=== PATIENT | male | born 1965 | race Caucasian/White ===

== ENCOUNTER → 2018-12-23 | Outpatient (CLI) | payer BC, SELFPAY ==
[2018-12-23 12:30] LABS: Color, Urine Yellow (Yellow); Glucose, Dipstick Normal (Normal); Ketone-Dipstick Negative (Negative); Leukocyte Esterase-Dipstick Negative /ul (Negative); Nitrite-Dipstick Negative (Negative); Occult Blood-Urine 250 /ul (Negative); Protein-Dipstick Negative (Negative); Urine Bilirubin Dipstick Negative (Negative); Urine Clarity Clear (Clear); Urine Urobilinogen Normal (Normal)
[2018-12-23 12:40] LABS: Absolute Lymphocyte Count 2.63 X10^3/ul (0.83-4.51); Absolute Neutrophil Count 3.1 X10^3/uL (2.0-7.7); Basophil# 0.07 X10^3/uL; Eosinophil# 0.34 X10^3/uL; Eosinophils% 5.1 % (0-5); Hematocrit 46.2 % (40-54); Hemoglobin 15.8 g/dl (13.0-16.5); Lymphocyte # 2.63 X10^3/ul (4.0); Lymphocyte % 39.4 % (19-41); Mean Corp Hgb Conc 34.2 g/gl (32-36); Mean Corpuscular Hgb 30.5 pg (27.0-32.0); Mean Corpuscular Volume 89.2 fL (80-94); Mean Platelet Vol. 11.5 fl (6.2-12.0); Monocyte# 0.54 X10^3/uL; Monocyte% 8.1 % (0-10); Neutrophil # 3.07 X10^3/uL (2.7-7.7); Neutrophil % 46.1 % (47-70); Platelet Count 232 K/mm3 (150-450); RBC Distribution Width CV 12.1 % (11.6-14.6); RBC Distribution Width SD 39.2 fl (35.1-43.9); Red Blood Count 5.18 M/mm3 (4.6-6.2); White Blood Count 6.7 K/mm3 (4.4-11.0)
[2018-12-23 12:50] LABS: POSITIVE COUNT NO; POSITIVE DIFFERENTIAL NO; POSITIVE MORPHOLOGY NO
[2018-12-23 13:25] LABS: ALB/GLOB Ratio 1.2 RATIO (0.9-2.4); AST(SGOT) 21 U/L (15-37); Alanine Aminotransfer ALT/SGPT 40 U/L (16-61); Albumin, Serum 4.2 g/dL (3.2-5.0); Alkaline Phosphatase 84 U/L (45-117); Anion Gap 9 (5-15); BUN 15 mg/dL (7-18); BUN/Creat Ratio 16.4 RATIO (10-20); Calcium,Total 8.9 mg/dL (8.5-10.1); Chloride 107 mmol/L (98-107); Cholesterol 198 mg/dL (200); Creatinine, Serum 0.92 mg/dL (0.70-1.30); EST Glomerular Filtration Rate 92 mL/min (>60); Est Glom Filt Rate - Afr Amer 111 mL/min (>60); Globulin 3.6 g/dL (2.2-4.2); Glucose 97 mg/dL (74-106); High Density Lipoprotein 47 mg/dL; PSA,Total - Annual Screen 0.56 ng/mL (0.00-4.00); Potassium 4.1 mmol/L (3.5-5.1); Protein, Total 7.8 g/dL (6.4-8.2); Sodium Level 141 mmol/L (136-145); Triglycerides 119 mg/dL; Very Low Density Lipoprotein 24 mg/dL (5-40)
== END | disposition home or self-care (01) ==
LOC: MTLAB 09:57
PROVIDERS: Family Provider Family Medicine; PCP Family Medicine; Referring Provider Family Medicine; Visit Provider Family Medicine
DX: Z00.00 Encounter for general adult medical examination without abnormal findings (principal); Z12.5 Encounter for screening for malignant neoplasm of prostate
CPT/HCPCS: 36415; 80053; 80061; 81002; 84153; 85025; G0103

== ENCOUNTER → 2020-01-11 13:54 | Outpatient (CLI) | payer BC, SELFPAY ==
--- NOTE | 2020-01-11 13:59 | ART_ITS ---
Reason For Study: Post-traumatic osteoarthritis, left ankle and foot Procedure A bilateral lower extremity continuous wave Doppler with analog waveform analysis,segmental pressures,and ankle brachial indexes without exercise. Left Segmental Pressures Left brachial= 133mmHg. Left posterior tibial artery = 177mmHg. Left dorsalis pedis artery = 159mmHg. Left digit = 122 mmHg. The left dorsalis pedis waveforms are triphasic. The left posterior tibial artery waveforms are triphasic. Right Segmental Pressures Right brachial= 139mmHg. Right posterior tibial artery = 163mmHg. Right dorsalis pedis artery = 152mmHg. Right digit = 122 mmHg. The right dorsalis pedis waveforms are triphasic. The right posterior tibial artery waveforms are triphasic. Indices The right ankle brachial index by the dorsalis pedis is 1.09. The right ankle brachial index by the posterior tibial artery is 1.17. The right digital-brachial index is 0.88. The left ankle brachial index by the dorsalis pedis is 1.27. The left ankle brachial index by the posterior tibial artery is 1.14. The left digital-brachial index is 0.88. Interpretation Summary Triphasic Doppler waveforms are noted at ankle level bilaterally. Pulse-volume recordings appear satisfactory at all levels bilaterally, including low-thigh, calf, ankle, and digital levels. Resting ankle-brachial indices are normal bilaterally. Digital-brachial indices are normal bilaterally. There is no evidence of significant arterial occlusive disease in the lower extremities bilaterally. Ordering Physician: Milton Omer Referring Physician: Leonel Martinez Performed By: Lizzy Joseph RVT and Student
== END ==
PROVIDERS: PCP Family Medicine; Referring Provider Podiatrist Foot & Ankle Surgery; Visit Provider Podiatrist Foot & Ankle Surgery
DX: M19.172 Post-traumatic osteoarthritis, left ankle and foot (principal)
CPT/HCPCS: 93923

== ENCOUNTER → 2020-01-17 16:03 | Outpatient (CLI) | payer BC, SELFPAY ==
--- NOTE | 2020-01-17 16:12 | CT_ITS ---
STUDY: CT LOWER EXTREMITY WITHOUT CONTRAST: LEFT REASON FOR EXAM: Male, 54 years old. OSTEOARTHRITIS RADIATION DOSAGE (If Supplied By Facility): CTDIvol = ( 15.35 ) mGy, DLP = ( 399.82 ) mGycm. Individualized dose optimization techniques were used for this CT.? TECHNIQUE: Transaxial imaging with sagittal and coronal reconstruction. COMPARISON: Left foot radiographs of 09/11/2011 FINDINGS: Advanced narrowing, vacuum phenomena and marginal osteophytosis of the tibiotalar articulation. Broadening and flattening of the talar dome. Large degenerative cyst of the distal fibula which is uncovered anteriorly with hypertrophic degenerative changes of the distal tibial fibular synchondrosis. Plantar spur and dorsal enthesophyte of the calcaneus. Mild degenerative narrowing and marginal osteophytosis of the subtalar joint. Mild degenerative narrowing of the talonavicular joint. Normal cuboid and cuneiform tarsals. Normal proximal metatarsals included in the [id number]. General swelling around the tibiotalar joint. There is a 2.2 x 1.0 x 2.8 cm fluid collection invested in the distal flexor hallux longus muscle and tendon. Similar fluid collection in the plantar soft tissues of the foot alongside the flexor hallux longus tendon. There is a strain of well corticated fragments probably associated with the posterior tibialis tendon CT/Extremity Lower without Contra IMPRESSION: Osteoarthritic changes of the tibiotalar joint and related structures as described above. Electronically Signed: Cheyanne Irby MD at 16:48 EDT , Service support ,
== END ==
PROVIDERS: PCP Family Medicine; Referring Provider Podiatrist Foot & Ankle Surgery; Visit Provider Podiatrist Foot & Ankle Surgery
DX: M19.172 Post-traumatic osteoarthritis, left ankle and foot (principal)
CPT/HCPCS: 73700

== ENCOUNTER 2020-03-14 12:41 | Observation (INO) | payer BC, SELFPAY ==
--- NOTE | 2020-02-21 20:25 | PCM.HP.BLA ---
History and Physical History and Physical Patient Name: Paolo Zayas : 1965 From: [facility] NP DATE OF SURGERY: 03/14/2020 SCHEDULED PROCEDURE: Left ankle fusion, left gastrocnemius recession and application of a wound VAC HISTORY OF PRESENT ILLNESS: Preoperative history and physical exam was performed on February 21, 2020. This is a 54-year-old male with left ankle pain. The patient fractured his left ankle when he was in kindergarten. The patient states the fracture was missed at that time. He underwent surgical intervention when he was in fifth grade. The patient does not recall exactly what surgical procedure was performed. He states that he has had continued pain in the left ankle since he was in high school. He describes the pain as constant, dull, aching, sharp and sore. The pain is progressively getting worse with time. The pain is 3 on a scale of 10 at best, 4 on a scale of 10 on average and 8 on a scale of 10 at worst. Associated symptoms include swelling in the left ankle. The pain is increased with stairs and walking. Previous treatments include rest. The patient has a medical history pertinent for depression. Surgical clearance has been obtained from Dr. Martinez. He denies chest pain, fevers, chills, shortness of breath, difficulty breathing or recent infections. After failing conservative measures and discussing treatment options with Dr. Milton Omer the patient does wish to proceed with a left ankle fusion with gastrocnemius recession and application of a wound VAC. REVIEW OF SYSTEMS: ROS: Const: Denies anorexia, anxiety, change in appetite, fever, difficulty sleeping, weight change. CV: Denies chest pain, heart murmur, irregular heartbeat and peripheral vascular disease. Resp: Reports sleep apnea, but denies asthma, cough, pneumonia, shortness of breath, tuberculosis and wheezing. GI: Denies constipation, diarrhea, heartburn, nausea, rectal itching, bloody stools and vomiting. : Denies incontinence. Musculo: Reports leg swelling and trouble walking, but denies pain and weakness. Skin: Reports tattoo, but denies Raynaud's and history of shingles. Neuro: Denies ambulatory dysfunction, dizziness, numbness/tingling and tremor. Psych: Reports depression, but denies anxiety, insomnia, mental illness and stress. Todd/Lymph: Denies anemia, bleeding/bruising tendency and past transfusion. Reviewed, no changes. PAST MEDICAL HISTORY: Advance Care Plan: No Advance Directives Effective Date: 12/11/2019 PMH: Medical Problems: Depression, High Triglycrides Accidents: Fracture - L ANKLE Sports Related Injury - SEPERATED RIBS AND RIGHT ROTATOR CUFF Surgical Hx: Tonsillectomy - 1970[facility]S [facility] Arthroscopy - (05/27/2007) R KNEE Arthroscopy - (10/25/2008) RT KNEE DR PRATT AT [facility] RT Knee Incision & Drainage - (11/15/2008) [facility] @ [facility] Left Ankle, Left Index Finger LT Shoulder Arthroscopy - (07/13/2012) [facility] @ [facility] Anesthesia Complications: None Assistive Devices: Glasses - READING Reviewed and updated. 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 Personal Habits: Cigarette Use: Currently smokes - USES SNUFF.Smokeless Tobacco: Current Smokeless Tobacco User.E-Cigarette Use: Former Smoker.Alcohol: Occasionally.Drug Use: Current Medical Marijuana.Enjoy Exercising: Never Exercises. Reviewed, no changes. VITALS: Ht: 64 Wt: 197lb Wt k.359 BMI: 33.8 BP: 117/69 Pulse: 60 Resp: 16 T: 97.6 T: 36.4C ALLERGIES: Adhesives - Rash MEDICATIONS: Doxycycline Monohydrate 100 mg 1 by mouth twice a day, Percocet 5-325 mg 1-2 by mouth every 4-6 hour as needed pain, Aspirin Ec 325 mg 1 by mouth every day, Citalopram Hydrobromide 40 mg 1po qday, Trazodone HCL 50 mg 1po qday PRE-OP EXAM: General appearance:NORMAL Other: Eyes: Conjunctivae and lids: NORMAL Pupils: ERR Ears, Nose, Mouth, and Throat: NORMAL Other: Inspection of lips, teeth and gums: NORMAL Other: Respiratory: Assessment of respiratory effort: NORMAL Other: Auscultation of lungs: clear to auscultation no wheezes, rhonchi or rales. Cardiovascular: Auscultation of heart: regular rate and rhythm, no murmurs, gallops or rubs. Gastrointestinal: Exam of abdomen: soft, nontender, nondistended bowel sounds present. Neurological: see below Psychiatric: Orientation to time, place and person: NORMAL Other: Mood and affect: NORMAL Other: PHYSICAL EXAMINATION: The patient ambulates with a antalgic gait. Minimal nonpitting edema in the left lower extremity in the area of the medial lateral malleoli of the left ankle. Multiple varicosities noted throughout the left lower extremity. Capillary refill is less than 3 seconds. Pedal pulse palpable. Temperature is warm. No tenderness with compression of the left gastrocnemius muscle. There is tenderness upon palpation and compression of the medial lateral gutters of the left ankle. Tenderness upon palpation of the compression of the tibiotalar articulation. No instability of the left ankle. Dorsiflexion 5/5. Plantar flexion 5/5. Eversion 5/5. Inversion 5/5. Full active plantar flexion. Limited active dorsiflexion. Crepitus noted with range of motion of the left ankle. Decreased range of motion left ankle when compared to the contralateral side. With the knee extended the left dorsiflexion is decreased. No pain with palpation or compression of the left hindfoot. Subtalar joint inversion and eversion is within normal limits and pain-free. Negative lateral squeeze test of the left calcaneus. Left foot is normal to inspection. No pain upon palpation and compression of the tarsometatarsal joint of the left foot. No pain upon palpation or compression of the styloid process of the fifth metatarsal left foot. Metatarsophalangeal joint range of motion is intact and pain free. Skin is intact with no ecchymosis, lesions, rashes or ulcerations. No maceration located on the toes. Skin is intact to light touch. Negative Tinel sign of the left foot. Negative Valleix sign of the left foot. IMAGING STUDIES: 3 views of left ankle including AP, lateral and oblique taken on December 11, 2019 reveal significant degenerative joint disease of the left ankle joint with narrowing of the ankle joint mortise and the medial gutter, lateral gutter and tibiotalar line. There is evidence of valgus tilt noted in the talus when compared to the longitudinal axis of the tibia. No joint space noted of the lateral gutter. Bone cyst formation noted at the lateral malleolus. Osteophyte formation on the anterior and posterior aspects of the tibia. CT scan of the left ankle obtained on January 17, 2020 reveals advanced narrowing, vacuum phenomena and marginal osteophytosis of the tibiotalar articulation of the left ankle. Widening and flattening of the talar dome. Large degenerative cyst of the distal fibula which is uncovered anteriorly and hypertrophic degenerative changes of the distal tibial fibular synchondrosis. IMPRESSION: 1. Posttraumatic osteoarthritis, left ankle and foot 2. Depression 3. Nicotine dependence, smokeless tobacco 4. Cannabis use PLAN: Dr. Milton Omer did discuss and review with the patient all treatment options including surgical versus nonsurgical. The patient does wish to proceed with the above-stated procedure. Potential risk, benefits and complications of the procedure were discussed in detail including but not limited to , infection, nerve and blood vessel damage, persistent pain, numbness, tingling, paresthesia, blood clot, pulmonary embolism and requirement for possible further surgery. The patient expressed full understanding and has no further questions for the doctor. The patient does agree to proceed with the above-stated procedure and has signed the surgery consent form. The patient was given a prescription for Percocet, aspirin and doxycycline at his preoperative visit. Discussed with the patient the risks associated with the COVID-19 virus including the risk of exposure while at the hospital. The patient was reassured local hospitals have low infection rates and taken all necessary precautions to limit patient exposure to COVID-19. Limiting the patient's time in the hospital may decrease their exposure to COVID-19. The patient was notified that we will need to comply with any screening or testing the hospital wishes to perform and that surgery may be delayed for any positive test results. This dictation was created using voice recognition software. Phonetic and/or grammatical errors may exist. ___ I have re-examined the patient. There are no clinical changes since date of exam. ___ See progress notes for changes. ___ Dictated on admission Date: Time: Signature:
--- NOTE | 2020-03-07 14:15 | EKG12_ITS ---
Test Reason : PRE OP Blood Pressure : / mmHG Vent. Rate : 060 BPM Atrial Rate : 060 BPM P-R Int : 156 ms QRS Dur : 096 ms QT Int : 420 ms P-R-T Axes : 022 -06 022 degrees QTc Int : 420 ms Sinus rhythm with marked sinus arrhythmia Otherwise normal ECG Confirmed by ANGELIC PALACIOS, SHEA ([id number]), staff editor NOE CERVANTES ([id number]) on 03/11/2020 1:20:46 PM Referred By: Milton Omer Confirmed By:LEVI ATWOOD MD
--- NOTE | 2020-03-07 14:30 | RAD_ITS ---
STUDY: X-RAY CHEST REASON FOR EXAM: Male, 54 years old. Patient is a smoker, preoperative eval TECHNIQUE: PA and lateral views of the chest. COMPARISON: Comparison is made with prior examination dated 07/13/2012. FINDINGS: The lungs are clear and expanded. There is no demonstrated pleural abnormality. Normal size heart. Normal mediastinum and lola. Normal visualized pulmonary arteries. There is atherosclerotic calcification of the aortic arch with tortuosity. There are diffuse degenerative changes of the visualized thoracic spine. Normal visualized ribs, clavicles, and shoulders. There is no demonstrated abnormality of the visualized soft tissue structures of the upper abdomen. RAD/Chest PA and Lateral IMPRESSION: No acute abnormality is seen. Electronically Signed: Ender Villareal, at 15:35 EDT , Service support ,
[2020-03-07 14:58] LABS: Absolute Lymphocyte Count 2.78 X10^3/uL (0.83-4.51); Absolute Neutrophil Count 4.2 X10^3/uL (2.0-7.7); Basophil# 0.07 X10^3/uL; Basophil% 0.9 % (0-1); Eosinophils% 2.5 % (0-5); Hematocrit 42.9 % (40-54); Hemoglobin 14.4 g/dL (13.0-16.5); Lymphocyte # 2.78 X10^3/ul (4.0); Lymphocyte % 34.5 % (19-41); Mean Corp Hgb Conc 33.6 g/dL (32-36); Mean Corpuscular Hgb 30.5 pg (27.0-32.0); Mean Corpuscular Volume 90.9 fL (80-94); Mean Platelet Vol. 10.3 fl (6.2-12.0); Monocyte# 0.75 X10^3/uL; Monocyte% 9.3 % (0-10); NRBC Flagged by Analyzer 0 % (0-5); Neutrophil # 4.22 X10^3/uL (2.7-7.7); Neutrophil % 52.3 % (47-70); Platelet Count 270 K/mm3 (150-450); RBC Distribution Width CV 12.1 % (11.6-14.6); RBC Distribution Width SD 40.7 fl (35.1-43.9); Red Blood Count 4.72 M/mm3 (4.6-6.2); White Blood Count 8.1 K/mm3 (4.4-11.0)
[2020-03-07 15:10] LABS: Anion Gap 8 (5-15); BUN 15 mg/dL (7-18); BUN/Creat Ratio 16.2 RATIO (10-20); Calcium,Total 9.1 mg/dL (8.5-10.1); Chloride 104 mmol/L (98-107); Creatinine, Serum 0.93 mg/dL (0.70-1.30); EST Glomerular Filtration Rate 90 mL/min (>60); Est Glom Filt Rate - Afr Amer 109 mL/min (>60); Glucose 86 mg/dL (74-106); Potassium 3.6 mmol/L (3.5-5.1); Sodium Level 139 mmol/L (136-145)
[2020-03-07 15:12] LABS: Partial Thromboplast Time 31.6 Seconds (24.1-36.2); Prothrombin Time (Protime)PT. 12.8 SECONDS (11.7-14.9)
[2020-03-07 15:14] LABS: Hemoglobin A1c 5.6 % (3.8-5.6)
[2020-03-14] VITALS (11 sets, daily range): BP systolic 125–143; BP diastolic 65–85; PULSE 58–95; RESP 16–20; TEMP 36.3–37; O2SAT 93–99; BMI 33.9
[2020-03-14] MEDS: Lactated Ringers 1,000 ML 100 ML IV ×3 (06:36→12:00)
[2020-03-14] MEDS: Ipratropium/Albuterol Sulfate 3 ML AMPUL.NEB INHALATION (07:30)
--- NOTE | 2020-03-14 07:30 | RAD_ITS ---
STUDY: X-RAY - LEFT ANKLE REASON FOR EXAM: Male, 54 years old. FUSION -- 20 FLUORO IMAGES, 504.9 FLUORO SEC, 12.62mGy TECHNIQUE: 3 view(s) of the ankle. COMPARISON: None. FINDINGS: Intraoperative imaging provided for ankle effusion. RAD/Ankle min 3 Views IMPRESSION: Intraoperative imaging provided for ankle fusion. Electronically Signed: Ender Villareal, at 13:31 EDT , Service support ,
[2020-03-14] MEDS: Cefazolin 2 GM in 0.9% Normal Saline 100 ML IV ×3 (07:35→22:10)
[2020-03-14] MEDS: Bupivacaine Mpf 0.5% 30 ML VIAL (12:51)
--- NOTE | 2020-03-14 12:54 | HP.PCM_ITS ---
Problem List (1) Osteoarthritis of left ankle Status: Acute Qualifiers: Osteoarthritis type: post-traumatic Qualified Code(s): M19.172 - Post- traumatic osteoarthritis, left ankle and foot (2) Depression Status: Chronic Qualifiers: Depression Type: other depression Qualified Code(s): F32.89 - Other specified depressive episodes (3) Nicotine dependence Status: Acute Qualifiers: Nicotine product type: chewing tobacco Substance use status: uncomplicated Qualified Code(s): F17.220 - Nicotine dependence, chewing tobacco, uncomplicated History of Present Illness Date of Admission: 03/14/20 Chief Complaint: Pain in left ankle This is a 54-year-old male with past medical history of depression who has a history of left ankle pain. The patient fractured his left ankle when he was in kindergarten. The patient states the fracture was missed at that time. He underwent surgical intervention when he was in fifth grade to repair the fracture. The patient does not recall exactly what surgical procedure was performed. He states that he has had continued pain in the left ankle since he was in high school. He describes the pain as constant, dull, aching, sharp and sore. The pain is progressively getting worse with time. The pain is 3 on a scale of 10 at best, 4 on a scale of 10 on average and 8 on a scale of 10 at worst. Associated symptoms include swelling in the left ankle. The pain is increased with stairs and walking. Previous treatments include rest, modifications of activity, use of bracing, cortisone injections, change in shoe gear, [id number] pain relievers. All these conservative therapies that were employed ultimately failed. I discussed with the patient surgical options at that time. Surgical options would include a left ankle joint fusion versus a left ankle total joint replacement. I discussed the risks and benefits of both procedures. After reviewing the clinical examination and the radiographic evaluation, I determined that a left ankle fusion would be in the patient's best interest at this time. After performing his own research and speaking with the family, patient was agreeable to proceed with the surgical intervention of left ankle joint fusion. The risks, benefits, possible outcomes, possible complications of the procedure were discussed with the patient. These include but not limited to delayed or nonhealing wounds, delayed and nonhealing bone, DVT, infection, decreased function of limb, continued pain, damage to surrounding structures, loss of limb, loss of life. Since he does rely on nicotine, he is at a higher risk of postoperative complications. All the patient questions were answered to his satisfaction and all of his concerns were addressed. No guarantees were made as to the outcome of the procedure. Patient elected to proceed with the procedure at this time of a left ankle joint fusion with application of wound VAC. Preoperative CT scan was ordered along with noninvasive vascular studies. The noninvasive vascular study showed adequate blood flow down to the left lower extremity. Surgical clearance has been obtained from Dr. Martinez. He denies chest pain, fevers, chills, shortness of breath, difficulty breathing or recent infections. He was performed today, March 14, 2020. Patient will be admitted for postoperative pain control and observation status with continuation of IV antibiotics. Past Medical History Past Medical History (Chronic Problems): Chronic Problems Depression (Chronic) Medical History: Medical History (Last Updated 03/14/20 @ 13:[address] Milton Omer, DPM) High triglycerides E78.1 Allergies adhesive tape Adverse Reaction (Verified 02/29/20 15:03) Itching Home Medications: Ambulatory Orders Medication Instructions Recorded Albuterol IH (ProAir) [Proair Hfa 1 puff INHALATION Q4H PRN 02/29/20 (SP)Vent Pts] Citalopram [Celexa] 40 mg PO DAILY 02/29/20 traZODone [Desyrel] 50 mg PO QHS 02/29/20 Surgical History: - - Tonsillectomy - 1970'S [facility] Arthroscopy - (05/27/2007) R KNEE Arthroscopy - (10/25/2008) RT KNEE DR PRATT AT [facility] RT Knee Incision & Drainage - (11/15/2008) [facility] @ [facility] Left Ankle, Left Index Finger LT Shoulder Arthroscopy - (07/13/2012) Dr. Jermaine Omer @ [facility] Psychiatric History: Depression Lives: With Family Smoking Status: Current every day smoker - uses smokeless tobacco Tobacco Use: Chew Alcohol: Occasional Drugs: None Review of Systems Constitutional: Denies: Anorexia, Chills, Fever, Night Sweats Eyes: Denies: Blurred vision, Cataracts, Conjunctivae Inflammation HEENT: Denies: Difficulty Hearing, Difficulty Swallowing, Dysphasia, Ear Pain Cardiovascular: Denies: Chest Pain, Claudication, Chest Pressure Respiratory: Denies: Cough, Shortness of Breath, Shortness of breath at rest, Shortness of breath upon exertion Gastrointestinal: Denies: Abdominal Pain, Constipation, Diarrhea Genitourinary: Denies: Dysuria, Frequency Musculoskeletal: Reports: Arm Pain, Joint Pain - Admits to left ankle pain during ambulation Skin: Denies: Dryness, Jaundice, Lesions Neurological: Denies: Balance problems, Blurred vision, Double vision Psychiatric: Reports: Depression Endocrine: Denies: Change in Body Habitus, Heat/ Cold Intolerance, Polydipsia, Polyuria VTE Information - Inpt Only VTE Present on Admission: No VTE Mechan Device Prophylaxis: SCD's VTE Pharm Prophylaxis ordered?: Yes Patient Problems: Active and Suspected Problems Osteoarthritis of left ankle (Acute) Nicotine dependence (Acute) Subjective: Patient seen at bedside resting comfortably. Patient admits to minimal pain of his left ankle, well controlled by medication. Patient denies any acute complaints at this time. Currently, patient denies fever, chills, nausea, vomiting, shortness of breath, chest pain. Patient denies left calf pain. Objective: Lower extremity physical exam: Dressing is clean, dry, intact to the left lower extremity with no evidence of strikethrough or dishevelment noted. Foot and ankle appear in a rectus position at this time underneath the tibia. Capillary fill time is less than 3 seconds all digits of the left foot. Gross and protective sensation is absent to the digits of the left foot due to the anesthesia block. Patient is able to move toes freely at this time. - Physical Exam Vitals/I&O's: Vital Signs Temp Pulse Resp BP Pulse Ox 98.5 F 82 20 H 125/68 H 98 03/14/20 06:28 03/14/20 07:30 03/14/20 07:30 03/14/20 06:28 03/14/20 06:28 Oxygen Delivery Method Room Air Weight: 89.6 kg Body Mass Index (BMI) 33.9 Intake and Output for Last 24 Hours 03/12/20 03/13/20 03/14/20 23:59 23:59 23:59 Intake Total 110 / 110 Output Total 1000 / 1000 Balance -890 / -890 General: Alert, Oriented x3, Cooperative, No apparent distress HEENT: Atraumatic, PERRLA Oral: Moist Mucosa Neck: Supple, No JVD Lungs: Clear to auscultation, Normal air movement, No rhonchi, No wheeze, No rales Cardiovascular: Regular rate, Regular Rhythm, Normal S1, Normal S2 Abdomen: Bowel Sounds Present, Soft, Non Tender, Non-Distended Extremities: Capillary Refill Less than 3 Seconds, No Calf Tenderness Skin: No rashes, No breakdown Psych/Mental Status: Alert and oriented to time, place, person, mood and affect Current Medications Albuterol Sulfate (Proair Hfa (Sp) Surgery/Vent Pts) 1 puff INHALATION Q4H PRN PRN Reason: SHORTNESS OF BREATH Citalopram Hydrobromide (Celexa) 40 mg PO DAILY [facility] Lactated Ringer's () 1,000 mls @ 100 mls/hr IV .Q10H [facility] Last Admin: 03/14/20 06:36 Dose: 100 mls/hr Documented by: Trazodone HCl (Desyrel) 50 mg PO QHS [facility] Assessment/Plan All Active Problems Osteoarthritis of left ankle (Acute) Nicotine dependence (Acute) This is a 54-year-old male with past medical history significant of depression and tobacco use who had a left ankle joint fusion performed today, March 14. Plan: Patient chart reviewed and patient evaluated. Full discussion had with the patient about the patient's current clinical condition. At this time, patient will be admitted for observation to assist in pain control and antibiotic management. Patient is to remain nonweightbearing to the left lower extremity with assistive devices. Physical therapy order placed to assist in this. Patient is to elevate his left foot above the level of heart as often as possible. Patient is to place ice around his left knee 30 minutes every hour as needed for pain. Pain medications ordered for the patient to take on an as-needed basis. Lovenox ordered for the patient to begin tomorrowMarch 15. Ancef 2 g every 8 hours ordered for antibiotic prophylaxis. Patient is to keep the dressing clean, dry, intact to the left lower extremity. The dressing cannot be removed at this time. Dressing may be reinforced as necessary. We will keep the patient overnight and likely discharge patient tomorrow, 2019 to home. Procedure Criteria Procedure Type: Elective COVID Risk Discussion: The surgeon/proceduralist and patient have discussed in detail the risk of exposure to and/or potential harm posed by the COVID-19 virus with having a surgery/procedure at this time versus the risk of delaying the surgery/procedure. It is not possible to know either the risk of delaying the surgery or procedure or chance of getting an infection with perfect accuracy, but a joint decision was made between the patient and the surgeon/proceduralist to proceed at this time with the scheduled surgery/procedure as indicated on the consent form. OBSV E&M: [id number] Initial observation care L2
--- NOTE | 2020-03-14 13:06 | DCINST_ITS ---
Discharge Diet: No Restrictions Discharge Activity: May Not Drive, May not drive while taking narcotic pain medications., May Not Shower, Use Walker, Use Crutches Weight Bearing Status: No weight bearing Keep extremity elevated above heart level: Left Leg Additional Activity Instructions:: 1. Keep dressing to left leg clean, dry, intact. Do not get dressing wet. Do not remove dressing. If get dressing wet, call office for instructions. I recommend sponge bathing at this time. Do not turn off or disconnect the Wound VAC. If Wound VAC starts beeping, please call office for further instruction. 2. Ice around left knee 30 minutes every hour as needed for pain. 3. Elevate left foot above level of heart as often as possible until follow-up appointment. 4. Do not walk, stand, place weight on left foot. Use crutches/walker/knee scooter for assistance. 5. Begin taking doxycycline (antibiotic) on March 15, 2020 twice a day as instructed. 6. Begin taking aspirin on March 15, 2020 as instructed. 7. Begin taking Percocet (pain medication) on March 15, 2020 as needed. 8. Please follow- up in prescheduled postoperative appointment at [place] office. Please call office with any questions or concerns. Call your doctor if your incision/area has: Continuous Slow Oozing, Sudden Increased Bleeding Call your doctor if you observe: Fever of 101 or Higher, Coldness, Increased Pain, Inability to have a bowel movement, Shortness of breath, Chest pain, Increased palpitations (irregular heartbeat), Calf discomfort Cleanse incision/area with: Keep Dressing Clean & Dry Allergies/Adverse Reactions: Allergies adhesive tape Adverse Reaction (Verified 02/29/20 15:03) Itching Medications to take at Discharge Albuterol IH (ProAir) [Proair Hfa (SP)Vent Pts] 1 puff INHALATION Q4H PRN 02/29/20 Citalopram [Celexa] 40 mg PO DAILY 02/29/20 traZODone [Desyrel] 50 mg PO QHS 02/29/20 Primary Care Physician: Vasiliy Martinez MD [Primary Care Provider] - Test Results: Test results from this visit will be discussed in further detail at your follow- up appointment, if applicable. Please Follow Up With: Leonor Lambert NP-C When: 1 week in [place] Office Proposed Discharge Date: 03/15/20
--- NOTE | 2020-03-14 13:10 | OP.PCM_ITS ---
Problem List (1) Osteoarthritis of left ankle Status: Chronic Qualifiers: Osteoarthritis type: post-traumatic Qualified Code(s): M19.172 - Post- traumatic osteoarthritis, left ankle and foot (2) Depression Status: Chronic Qualifiers: Depression Type: other depression Qualified Code(s): F32.89 - Other specified depressive episodes (3) Nicotine dependence Status: Acute Qualifiers: Nicotine product type: chewing tobacco Substance use status: uncomplicated Qualified Code(s): F17.220 - Nicotine dependence, chewing tobacco, uncomplicated Report of Operation Date of Procedure: 03/14/20 Pre-Operative Diagnosis: 1. Posttraumatic osteoarthritis, left ankle. Post-Operative Diagnosis: Same as preoperative Surgery/Procedure Performed:: 1. Left ankle joint fusion with internal fixation. 2. Application of wound VAC, left leg. 3. Application of bone graft, left leg Description of Surgical Findings:: Consistent with diagnosis. Reduction of ankle joint achieved and compressed with internal fixation in adequate position. Application of wound VAC performed with adequate seal and suction noted. parking inspector: Leonor Lambert NP Type of Anesthesia:: General/Regional - with a left lower extremity popliteal block given pre-operative and saphenous block given intraoperatively Anesthesiologist: Felipe Pacheco Special Medications: 2 grams of ancef given pre-operatively Specimen's removed: None Drains: Wound VAC place to left leg incision site with adequate seal and suction Estimated Blood Loss (mL): 150 Description of Procedure: Hemostasis: Pneumatic thigh tourniquet placed at the level of the left thigh at 300 mmHg for 125 minutes Estimated blood loss is 150 mL Materials: #1. Clements anterior tibiotalar CP plate for the left side. 2. Daysi 6.5 x 50 mm cannulated screw. 3. Daysi 4.0 x 26 mm cortex screw. 4. Daysi 4.0 x 30 mm cortex screw. 5. Daysi 4.0 x 42 mm cortical screw. 6. Daysi 4.0 x 26 mm locking screw x3. 7. Daysi Vitoss. 8. Size 0 Vicryl. 9. Size 2-0 Vicryl. 10. Size 3-0 Vicryl. 11. Size 2-0 nylon. 12. Size 3-0 nylon Injectables: 5 mL of 0.5% bupivacaine plain given a proximal saphenous nerve block fashion Complications: None Condition: Stable Indications: This is a 54-year-old male with past medical history of depression who has a history of left ankle pain. The patient fractured his left ankle when he was in kindergarten. The patient states the fracture was missed at that time. He underwent surgical intervention when he was in fifth grade to repair the fracture. The patient does not recall exactly what surgical procedure was performed. He states that he has had continued pain in the left ankle since he was in high school. He describes the pain as constant, dull, aching, sharp and sore. The pain is progressively getting worse with time. The pain is 3 on a scale of 10 at best, 4 on a scale of 10 on average and 8 on a scale of 10 at worst. Associated symptoms include swelling in the left ankle. The pain is increased with stairs and walking. I have been treating the patient on a conservative basis, with conservative therapy including rest, modifications of activity, use of bracing, cortisone injections, change in shoe gear, [id number] pain relievers. All these conservative therapies that were employed ultimately failed. I discussed with the patient surgical options at that time. Surgical options would include a left ankle joint fusion versus a left ankle total joint replacement. I discussed the risks and benefits of both procedures. After reviewing the clinical examination and the radiographic evaluation, I determined that a left ankle fusion would be in the patient's best interest at this time along with application of incisional wound VAC and bone graft. After performing his own research and speaking with the family, patient was agreeable to proceed with the surgical intervention of left ankle joint fusion. The risks, benefits, possible outcomes, possible complications of the procedure were discussed with the patient. These include but not limited to delayed or nonhealing wounds, delayed and nonhealing bone, DVT, infection, decreased function of limb, continued pain, damage to surrounding structures, loss of limb, loss of life. Since he does rely on nicotine, he is at a higher risk of postoperative complications. I did instruct him on the benefits of stopping his tobacco use. All the patient questions were answered to his satisfaction and all of his concerns were addressed. No guarantees were made as to the outcome of the procedure. Patient elected to proceed with the procedure at this time of a left ankle joint fusion with application of wound VAC and bone graft. Preoperative CT scan was ordered along with noninvasive vascular studies. The noninvasive vascular study showed adequate blood flow down to the left lower extremity. Surgical clearance has been obtained from Dr. Martinez. Surgery was scheduled for today, 03/14/2020 at [facility]. Operative report: Before the patient was brought to the operating room, the risks, benefits, possible outcomes, possible complications of the procedure were discussed with the patient once again. The operative complications would not include but not limited to delayed or nonhealing wounds, delayed or nonhealing bone, DVT, infection, decreased function of limb, continued pain, continued decrease of activities of daily living, loss of limb, loss of life, damage to surrounding structures. All the patient's questions were answered to his satisfaction and all of his concerns were addressed. No guarantees were made as to the outcome of the procedure. Patient understood all aspects of the procedure, and consent was then signed by the patient. Before the patient was brought to the operating room, the anesthesiologist administered a popliteal block to the left lower extremity. The patient was then brought to the operating room and placed on the operating table in the supine position. After timeout, once general anesthesia was obtained and anesthesia to control the airway and the IV access, all pre ssure points were padded. Next, a pneumatic thigh tourniquet was placed at the level of the left thigh. Next, a Dolan catheter was placed in adequate position. The left foot, ankle, leg were then scrubbed, prepped, draped in the usual sterile manner. At this time, live radiograph evaluation was used to determine the level of the talonavicular joint on the left ankle, anterior ankle joint line, and 8 cm proximal to the ankle joint line. These will all marked on the patient. Furthermore, the medial and lateral malleoli were were identified on radiographs and marked on the patient. Next, the dorsalis pedis pulse was palpated and marked on the patient. At this time, the tibialis anterior tendon and the extensor hallucis longus tendons were palpated and the tendon course of these tendons was marked on the patient as well. At this time, the left foot, ankle, leg were then elevated and exsanguinated via Esmarch and inflation of the pneumatic thigh tourniquet was performed to 300 mmHg. Attention was then directed back to the anterior aspect the left ankle. At this time, a linear longitudinal incision was made starting at a level 8 cm proximal to the ankle joint line over the extensor hallucis longus tendon extending distally over the anterior ankle joint ending at the level of the talonavicular joint. The distalmost portion of the incision was called a curved slightly medially. This incision was deepened utilizing sharp and blunt dissection. Care was taken to retract all vital neural and vascular structures. All bleeders were cauterized and ligated as necessary. Care was taken make sure that minimal tension was placed on the skin during the entire procedure. At this time, the extensor retinaculum was identified and transected in a fashion similar to that of the skin. At this time, the extensor hallucis longus tendon was identified and the tendon sheath was transected in a fashion similar to that the skin. Care was taken make sure that the tibialis anterior tendon sheath was left intact. At this time, the tibialis anterior tendon was retracted medially and the extensor hallucis longus tendon was retracted laterally, thus exposing the anterior tibial artery/dorsalis pedis artery and the deep peroneal nerve. At this time, a full-thickness incision was made medial to the neurovascular bundle starting at the proximal aspect of the incision extending distally to the distal aspect of the incision. Care was taken make sure that the incision was made medial to the neurovascular bundle and that it did not interfere with the neurovascular bundle. Furthermore, care was taken to make sure that this incision was full-thickness in fashion. Next, a periosteal elevator was used to reflect the capsular structures medially and laterally, thus exposing the ankle joint, distal tibia, distal fibula, and talus at the operative site. At this time, visual inspection was then performed of the ankle joint. A significant amount of sclerotic bone was noted along with a significant osteophytes on the distal anterior tibia and the dorsal part of the talus. At this time, curettes, rongeurs, osteotomes, were used to resect as much of the cartilage tissue on the tibia, fibular and talus contained within the ankle joint and the medial and lateral gutters. Once as much resection was performed, K wires were thrown from medial to lateral through the tibia and medial to lateral through the talus, with care taken to avoid any vital neural and vascular structures along with avoiding the fibula. Next, distractors were placed over these K wires medially and laterally, and distraction of the ankle joint was performed. Of note was that there was a significant amount of damage to the cartilage present on the medial and lateral shoulders of the talus, me dial and lateral malleoli, and posterior aspect of the tibiotalar articulation. Attempts were made to remove as much of this cartilage contained within the ankle joint on the distal tibia, talus, and fibula. Osteotomes, currettes, rongeours and a power anahi were used to resect this cartilage. Once adequate removal of the cartilage and fibrous tissue was performed, the surgical site was irrigated with copious amounts of normal sterile saline. At this time, a mallet and osteotome were used to remove the osteophytes on the distal anterior tibia and the anterior talus. Irrigation was performed once again. Next, subchondral drilling was performed along with fish scaling with a mallet and osteotome of the talus, tibia, and fibula at the level of the ankle joint. Next, the Daysi Vitoss was mixed with peripheral blood and packed into the ankle joint. The pneumatic thigh tourniquet was then released and a prompt hyperemic response was noted to the entirety of the left lower extremity. The dorsalis pedis was noted to be palpable, and no pumper bleeders were noted. All of the bleeders were cauterized and ligated as necessary. At this time, the distractors were then removed and the compressors were placed over the K wires. Dorsiflexion and plantarflexion was then performed of the foot at the level of the ankle. Due to adequate positioning, it was determined that a gastrocnemius recession would not need to be performed. With the foot held in a neutral dorsiflexion and plantar flexion position, slight valgus position, and slight external rotation with the second digit in line with the tibial tuberosity, compression was performed with the compressors over the K wires. This ankle joint was then held via temporary fixation. A neutral dorsiflexion and plantar flexion position was noted and the second toe was noted to be in line with the tibial tuberosity. The hindfoot was noted to be in slight valgus. At this time, the template for the Daysi CP plate was placed over the anterior aspect of the tibia and held via temporary fixation. Radiograph evaluation was then performed. Once adequate positioning was had, the K wire for the reaming was placed and the template was then removed. Reaming for the CP hole was then performed to an adequate depth. Irrigation of the surgical site was performed to remove any cortical bone. Next, the Daysi CP plate was placed over the anterior aspect of the tibia. Radiograph evaluation was performed to determine adequate positioning. Once adequate positioning was had, this was held via temporary fixation. Next, the talar holes for the Daysi CP plate were affixed to the talus via locking screws. Of note during insertion of the screws was the adequate compression of the plate to the bone. Furthermore, no shifting of the bone occurred during insertion of the screws. Radiograph evaluation was performed to make sure the screws were noted to neither be too long or too short. Next, preparation of the CP hole was performed in standard fashion. At this time, the Daysi 6.5 cannulated screw was placed in the CP hole and inserted. Once compression was started to be had through the plate at the level of the ankle joint, all temporary fixation was then removed and the CP screw was fully inserted. Of note during insertion of the screw was the significant compression through the plate into the bone that was performed at the tibiotalar joint. No shifting of the joint or the plate occurred during insertion of the CP screw. Once the CP screw was fully inserted, radiograph evaluation was then performed. The CP screw was noted in neither be too long or too short. Furthermore, it was difficult to visualize the ankle joint at this time due to the compression. Clinical inspection was then performed, and multiple times were made to insert a Clover elevator into the ankle joint. This was unable to be performed due to the significant compression contained within the ankle joint. At this time, the proximal holes and the distal hole just distal to the CP plate was affixed to the tibia via nonlocking screws. Of note during insertion of the screws was the adequate compression of the plate to the bone. Furthermore, no shifting any of the plate occurred during insertion of the screws. Once all screws were fully inserted, radiograph evaluation was then performed. All the screws are noted to either be too long or too short and were noted to hold the plate and the ankle in the corrected reduced position. At this time, due to the significant compression contained through the plate and the screw, it was determined that another screw placed into the tibiotalar joint would not be needed. At this time, the surgical site was irrigated with copious amounts of normal sterile saline. The plate was noted to be in the anterior aspect of the tibia and was noted to hold the ankle joint in the correct the reduced position. Furthermore, it was difficult to visualize the tibiotalar joint. At this time, the K wire insertion sites on the medial and lateral aspects of the ankle were reapproximated coapted utilizing 3-0 nylon in a simple interrupted and horizontal mattress fashion for the skin. For the anterior incision, the periosteal and capsular structures were reapproximated coapted utilizing size 0 Vicryl. The extensor hallucis longus tendon sheath was reapproximated coapted utilizing size 2-0 Vicryl. The extensor retinaculum was reapproximated coapted utilizing size 0 Vicryl and size 2-0 Vicryl. The subcutaneous tissue was reapproximated coapted utilizing size 2-0 Vicryl and 3-0 Vicryl. The skin was reapproximated coapted utilizing size 3-0 nylon in an Allgower-Donati suture like fashion. The medial and lateral surgical sites were then dressed with Betadine soaked g auze and Tegaderm. At this time, the [employer]CI Prevena Wound VAC was applied to the anterior incision. Adequate seal and suction was noted at 125 mmHg. The left foot, ankle, leg were then dressed with a dry sterile dressing consisting of 4 x 4 gauze, ABD pads, wrapped with Kerlix. Care was taken to make sure that no pressure of the hose was placed against the skin. The left foot, ankle, leg were then wrapped in Gilmar bandage. Next, a stockinette was placed over the left lower extremity. Cast padding was wrapped from the metatarsal heads extending proximally to a level just distal to the tibial tuberosity. A posterior splint was fashioned to the left lower extremity and was adhered to the left lower extremity utilizing Gilmar bandages. Neurovascular status was assessed at the end of the application and deemed intact the left lower extremity. The patient tolerated the anesthesia and the procedure well and was transported to the PACU with vital signs stable and neurovascular status intact to the left lower extremity. After period of postoperative monitoring, patient will be transferred to the medical surgical unit for postoperative pain control and management. The cardiovascular surgical tech, the nurse practitioner, was utilized at the entire procedure. She helped with patient positioning, holding of limb, holding of retractors. She helped with exposure throughout. She helped with bandage application, and cast application. Without the cardiovascular surgical tech, surgical time would have been increased and surgical outcome could have been less optimal. - Complications None - Admit VTE Documentation VTE Present on Admission: No VTE Mechan Device Prophylaxis: SCD's VTE Pharm Prophylaxis ordered?: Yes
--- NOTE | 2020-03-14 13:45 | RAD_ITS ---
STUDY: X-RAY - LEFT ANKLE REASON FOR EXAM: Male, 54 years old. POST OP TECHNIQUE: 4 view(s) of the ankle. COMPARISON: Intraoperative images of earlier this date FINDINGS: There is an internal fixation plate with multiple screws fusing the anterior tibiotalar articulation. There are degenerative changes of the tibiotalar joint. The visualized subtalar, talonavicular, calcaneocuboid and tarsal articulations are normal. The soft tissue structures are unremarkable. RAD/Ankle min 3 Views IMPRESSION: Internal fixation plate noted with multiple screws fusing the anterior tibiotalar articulation. Degenerative changes with joint space narrowing of the tibiotalar joint are noted. Electronically Signed: Alexandre Shaffer MD at 17:19 EDT , Service support ,
--- NOTE | 2020-03-14 17:07 | CPS ---
patient not interested
[2020-03-14] MEDS: oxyCODONE 5 MG Tablet PO (20:02)
[2020-03-14] MEDS: traZODone 50 MG Tablet PO (22:10)
[2020-03-14] MEDS: Acetaminophen 325 MG Tablet 650 MG PO (22:19)
[2020-03-15 02:58] VITALS: BP 137/78; PULSE 60; RESP 16; TEMP 36.8; O2SAT 97
[2020-03-15] MEDS: Enoxaparin 40 MG/0.4 ML Syringe SC (06:11)
[2020-03-15] MEDS: Cefazolin 2 GM in 0.9% Normal Saline 100 ML IV (06:11)
--- NOTE | 2020-03-15 07:21 | PCM.DC.SUM ---
Discharge Date and Diagnosis - Problem List Patient Problems: Active and Suspected Problems (Last Updated 03/14/20 @ 13:[address] Milton Omer DPM) Nicotine dependence (Acute) Date of Admission: 03/14/20 Date of Discharge: 03/15/20 - Primary Discharge Diagnosis Acute Problems: Active Problems (Last Updated 03/14/20 @ 13:[address] Milton Omer DPM) Post traumatic osteoarthritis, left ankle and foot Depression Nicotine dependence (Acute) - Secondary Discharge Diagnosis Chronic Problems: Chronic Problems (Last Updated 03/14/20 @ 13:[address] Milton mOer DPM) Osteoarthritis of left ankle (Chronic) Depression (Chronic) Hospital Course and Treatment Imaging Results: STUDY: X-RAY - LEFT ANKLE REASON FOR EXAM: Male, 54 years old. POST OP TECHNIQUE: 4 view(s) of the ankle. COMPARISON: Intraoperative images of earlier this date FINDINGS: There is an internal fixation plate with multiple screws fusing the anterior tibiotalar articulation. There are degenerative changes of the tibiotalar joint. The visualized subtalar, talonavicular, calcaneocuboid and tarsal articulations are normal. The soft tissue structures are unremarkable. RAD/Ankle min 3 Views IMPRESSION: Internal fixation plate noted with multiple screws fusing the anterior tibiotalar articulation. Degenerative changes with joint space narrowing of the tibiotalar joint are noted. Electronically Signed: Alexandre Shaffer MD at 17:19 EDT , Service support , Operations: - - left ankle joint fusion with application of wound VAC and bone graft Procedures: None Summary of Care Provided: This is a 54-year-old male with past medical history of depression, nicotine dependence who has a history of left ankle pain. The patient fractured his left ankle when he was in kindergarten. The patient states the fracture was missed at that time. He underwent surgical intervention when he was in fifth grade to repair the fracture. The patient does not recall exactly what surgical procedure was performed. He states that he has had continued pain in the left ankle since he was in high school. Associated symptoms include swelling in the left ankle. The pain is increased with stairs and walking. Previous treatments include rest, modifications of activity, use of bracing, cortisone injections, change in shoe gear, [id number] pain relievers. All these conservative therapies that were employed ultimately failed. I discussed with the patient surgical options at that time. Surgical options would include a left ankle joint fusion versus a left ankle total joint replacement. I discussed the risks and benefits of both procedures, and an ankle joint fusion was determined as the best option. The risks, benefits, possible outcomes, possible complications of the procedure were discussed with the patient. These include but not limited to delayed or nonhealing wounds, delayed and nonhealing bone, DVT, infection, decreased function of limb, continued pain, damage to surrounding structures, loss of limb, loss of life. Since he does rely on nicotine, he is at a higher risk of postoperative complications. All the patient questions were answered to his satisfaction and all of his concerns were addressed. No guarantees were made as to the outcome of the procedure. Patient elected to proceed with the procedure at this time of a left ankle joint fusion with application of wound VAC. Surgical intervention performed yesterday, March 14, 2020. Patient tolerated procedure and anesthesia well. Neurovascular status intact to left lower extremity postoperatively. Patient was admitted for overnight IV antibiotics and pain management. Upon speaking with the patient this morning, he feels that he is ready to go home while remaining nonweightbearing to the left lower extremity. Patient already has his postoperative prescriptions filled at home to begin when he arrives. Patient has a postoperative appointment scheduled in the [place] office in 1 week. Patient Problems: Active and Suspected Problems (Last Updated 03/14/20 @ 13:[address] Milton Omer, [place]) Nicotine dependence (Acute) Subjective: Patient seen at bedside resting comfortably. Patient admits to mild pain of his left ankle, controlled by medications at this time. He has been able to sleep well. Patient denies any other acute complaints at this time. Currently, patient denies fever, chills, nausea, vomiting, shortness of breath, chest pain. Patient denies left calf pain. Objective: Lower extremity physical exam: Dressing is clean, dry, intact the left lower extremity with no evidence of strikethrough or dishevelment noted. Wound VAC is working appropriately with adequate seal and suction noted. Capillary fill time is less than 3 seconds all digits of the left foot. Left foot toes are warm and equal when compared to the contralateral extremity. Gross and protective sensation is intact to the left lower extremity at this time when compared to the contralateral lower extremity. Patient is able to move toes freely and this is comparable when compared to the contralateral extremity. Foot and ankle appear in a rectus position underneath the tibia at this time. - Physical Exam Vitals/I&O's: Vital Signs Temp Pulse Resp BP Pulse Ox 98.2 F 60 16 137/78 H 97 03/15/20 02:58 03/15/20 02:58 03/15/20 02:58 03/15/20 02:58 03/15/20 02:58 Oxygen Flow Rate (L/min) 3 Oxygen Delivery Method CPAP Weight: 89.6 kg Body Mass Index (BMI) 33.9 Intake and Output for Last 24 Hours 03/13/20 03/14/20 03/15/20 23:59 23:59 23:59 Intake Total 2330 / 2810 880 / 880 Output Total 1999 520 / 520 Balance 330 / 810 360 / 360 General: Alert, Oriented x3, Cooperative, No apparent distress, Well developed, Well nourished HEENT: Atraumatic, PERRLA Oral: Moist Mucosa Neck: Supple, No JVD Lungs: Clear to auscultation, Normal air movement, No rhonchi, No wheeze, No rales Cardiovascular: Regular rate, Regular Rhythm, Normal S1, Normal S2 Abdomen: Bowel Sounds Present, Soft, Non Tender, Non-Distended Extremities: No cyanosis, Capillary Refill Less than 3 Seconds, No Calf Tenderness Skin: No rashes, No breakdown Musculoskeletal: Tenderness - mild upon palpation of left ankle Lymphatic: No Cervical, Supraclavicular, or Inguinal Adenopathy Neurological: Sensory exam intact to light touch and pain Psych/Mental Status: Alert and oriented to time, place, person, mood and affect Current Medications Acetaminophen (Tylenol) 650 mg PO Q4H PRN PRN PRN Reason: Pain 1-10 or Fever Last Admin: 03/14/20 22:19 Dose: 650 mg Documented by: Hydrocodone Bitart/Acetaminophen ([place] 5mg-325mg) 1 - 2 tablet PO Q6H PRN PRN PRN Reason: Pain Score 1-5/10 Albuterol Sulfate (Ventolin Aerosols) 2.5 mg INHALATION Q4H PRN PRN PRN Reason: SHORTNESS OF BREATH Citalopram Hydrobromide (Celexa) 40 mg PO DAILY [facility] Docusate Sodium (Colace) 100 mg PO BID PRN PRN PRN Reason: CONSTIPATION Enoxaparin Sodium (Lovenox) 40 mg SC DAILY@0600 [facility] Last Admin: 03/15/20 06:11 Dose: 40 mg Documented by: Hydromorphone HCl (Dilaudid Inj) 1 mg IV Q2H PRN PRN PRN Reason: Pain Score 6-10/10 Lactated Ringer's () 1,000 mls @ 100 mls/hr IV .Q10H [facility] Last Admin: 03/14/20 12:00 Dose: 100 mls/hr Documented by: Cefazolin Sodium 2 gm/ Sodium (Chloride) 110 mls @ 150 mls/hr IV Q8 [facility] Last Admin: 03/15/20 06:11 Dose: 150 mls/hr Documented by: Sodium Chloride () 250 mls @ 15 mls/hr IV .[id number] PRN PRN Reason: Saline Flush Sodium Chloride () 250 mls @ 15 mls/hr IV .[id number] PRN PRN Reason: Additional IVPB Infusion Influenza Virus Vaccine Quadrival (Flucelvax /Fluzone ) 0.5 ml IM .ONCE ONE Stop: 03/15/20 10:01 Ondansetron HCl (Zofran) 8 mg PO Q8H PRN PRN PRN Reason: NAUSEA/VOMITING Oxycodone HCl (Oxyir) 5 mg PO Q6H PRN PRN PRN Reason: Pain Score 6-10/10 Last Admin: 03/14/20 20:02 Dose: 5 mg Documented by: Promethazine HCl (Phenergan) 25 mg IM Q8H PRN PRN PRN Reason: Nausea/vomiting Sodium Chloride () 10 - 40 ml IV UD PRN PRN Reason: SALINE FLUSH Trazodone HCl (Desyrel) 50 mg PO QHS [facility] Last Admin: 03/14/20 22:10 Dose: 50 mg Documented by: Discharge Diet: No Restrictions Discharge Activity: May Not Drive, May not drive while taking narcotic pain medications., May Not Shower, Use Walker, Use Crutches Weight Bearing Status: No weight bearing Keep extremity elevated above heart level: Left Leg Additional Activity Instructions:: 1. Keep dressing to left leg clean, dry, intact. Do not get dressing wet. Do not remove dressing. If get dressing wet, call office for instructions. I recommend sponge bathing at this time. Do not turn off or disconnect the Wound VAC. If Wound VAC starts beeping, please call office for further instruction. 2. Ice around left knee 30 minutes every hour as needed for pain. 3. Elevate left foot above level of heart as often as possible until follow-up appointment. 4. Do not walk, stand, place weight on left foot. Use crutches/walker/knee scooter for assistance. 5. Begin taking doxycycline (antibiotic) on March 15, 2020 twice a day as instructed. 6. Begin taking aspirin on March 15, 2020 as instructed. 7. Begin taking Percocet (pain medication) on March 15, 2020 as needed. 8. Please follow-up in prescheduled postoperative appointment at [place] office. Please call office with any questions or concerns. Call your doctor if your incision/area has: Continuous Slow Oozing, Sudden Increased Bleeding Call your doctor if you observe: Fever of 101 or Higher, Coldness, Increased Pain, Inability to have a bowel movement, Shortness of breath, Chest pain, Increased palpitations (irregular heartbeat), Calf discomfort Cleanse incision/area with: Keep Dressing Clean & Dry Home Medications: Medications to take at Discharge Albuterol IH (ProAir) [Proair Hfa (SP)Vent Pts] 1 puff INHALATION Q4H PRN 02/29/20 Citalopram [Celexa] 40 mg PO DAILY 02/29/20 traZODone [Desyrel] 50 mg PO QHS 02/29/20 Primary Care Physician: Vasiliy Martinez MD [Primary Care Provider] - Please Follow Up With: Leonor Lambert NP-C When: 1 week in [place] Office Disposition: Home Minutes spent on discharge:: 30 Patient Condition:: Good Medical Necessity - Tobacco Use Smoking Status: Current every day smoker Tobacco Use: Chew Meaningful Use Info Meaningful Use Diagnoses (Choose all that apply): None applicable OBSV E&M: 44523 Subsequent observation care L2
--- NOTE | 2020-03-15 10:07 | CASEMGMT ---
KARINE KNIGHT updated by therapy that patient will need FWW at discharge. KARINE KNIGHT called [facility] for Dr. Omer and script received for walker. KARINE KNIGHT in to see patient for preferences for DME. List provided to patient and would like [employer]. KARINE KNIGHT sent referral to [employer] and called to arrange for deliver to patient's room prior to discharge. Patient had no further concerns at this time.
[2020-03-15] MEDS: Citalopram 40 MG TABLET PO (10:18)
[2020-03-15] MEDS: HYDROcodone Bitartrate/Apap 5/325 Tablet PO (11:13)
--- NOTE | 2020-03-15 11:13 | PHA.DC.MR ---
Pharmacy Service has performed discharge medication reconciliation for this patient. The patient's discharge medication list was reviewed for discrepancies and discrepancies were resolved. Home Medications Albuterol IH (ProAir) [Proair Hfa (SP)Vent Pts] 1 puff INHALATION Q4H PRN 02/29/20 Citalopram [Celexa] 40 mg PO DAILY 02/29/20 traZODone [Desyrel] 50 mg PO QHS 02/29/20
[2020-03-15 12:34] VITALS: BP 140/80; PULSE 74; RESP 16; TEMP 36.9; O2SAT 99
== END 2020-03-15 11:23 | disposition home or self-care (01) ==
LOC: SDC 13:54 → MS3 13:54
PROVIDERS: Anesthesiology; Admitting Provider Podiatrist Foot & Ankle Surgery; PCP Family Medicine; Referring Provider Podiatrist Foot & Ankle Surgery; Visit Provider Podiatrist Foot & Ankle Surgery
DX: M19.172 Post-traumatic osteoarthritis, left ankle and foot (principal); Z23 Encounter for immunization; Z79.899 Other long term (current) drug therapy; F32.9 Major depressive disorder, single episode, unspecified; F17.220 Nicotine dependence, chewing tobacco, uncomplicated; E78.1 Pure hyperglyceridemia; Z11.59 Encounter for screening for other viral diseases; G25.81 Restless legs syndrome; F41.9 Anxiety disorder, unspecified
CPT/HCPCS: 01480; 27870; 64445; 36415; 71046; 73610; 76000; 80048; 83036; 85025; 85610; 85730; 87635; 93005; 94640; 96361; 96365; 96366; 96372; 97162; 99218; 99406; C1713; C9803; J7030; J7120; 90686; G0378; G0379; J2405; U0003

== ENCOUNTER 2020-10-04 17:33 | Emergency (ER) | payer BC, SELFPAY ==
[2020-03-14 14:58] VITALS: BMI 33.9
[2020-10-04 17:34] VITALS: BP 134/72; PULSE 58; RESP 18; TEMP 36.4; O2SAT 96; BMI 34.3
--- NOTE | 2020-10-04 17:53 | ED.DCSUM_ITS ---
History of Present Illness Chief Complaint: Abd Pain Informant: Patient Onset: Weeks - 2 Narrative: Patient has been having intermittent mid abdominal discomfort for the past 2 weeks. He was established with a PCP a week ago Dr. Franks and forgot to mention this. He states today had increasing symptoms after eating pizza yesterday. He states he had diarrhea this morning, however this evening noted mucousy color stools concerns of blood. He does not take any anticoagulation medications. Reports has been using Motrin total of 600 mg daily at night for the past 3 weeks due to a previous left ankle injury. He does not take any other anti-inflammatory medications. Denies lightheaded symptoms. Denies vomiting. He called PCP office today was told to the ED. Prior similar symptoms: No Past Medical History - Allergies and Home Meds Allergies/Adverse Reactions: Allergies adhesive tape Adverse Reaction (Verified 10/04/20 17:36) Itching Primary Care Physician: Vasiliy Martinez MD [NON-STAFF] - Past Medical History: - - Depression. Surgical History: - - Tonsillectomy - 1969' [facility] Arthroscopy - (05/27/2007) R KNEE Arthroscopy - (10/25/2008) RT KNEE DR PRATT AT [facility] [place] RT Knee Incision & Drainage - (11/15/2008) [facility] @ [facility] Left Ankle, Left Index Finger LT Shoulder Arthroscopy - (07/13/2012) Dr. Jermaine Omer @ [facility] [place] Lives: - Smoking Status: Former smoker Review of Systems General: Denies: Chills, Fever, Sweats Eyes: Denies: Visual changes - bilaterally, Diplopia ENT: Denies: Rhinorrhea, Sore throat Cardiovascular: Denies: Chest pain, Palpitations Respiratory: Denies: Dyspnea, Cough, Dyspnea on exertion Gastrointestinal: Reports: Abdominal pain, - - Concerns of blood in stool.. Denies: Nausea, Vomiting, Diarrhea, Melena, Hematochezia Genitourinary: Denies: Dysuria, Hematuria, Frequency Musculoskeletal: Denies: Back pain, Extremity Pain Skin: Denies: Rash, Wounds Neurological: Denies: Headache, Weakness, Numbness Physical Exam Vital Signs/Narrative: Vital Signs Temp Pulse Resp BP Pulse Ox 10/04/20 17:34 97.6 F L 58 L 18 134/72 H 96 Inital Vital Signs reviewed: Yes General: Well nourished, Well developed, No Acute Distress Head: Normocephalic, Atraumatic Eyes: Perrl, EOMI. Negative for: Pale conjunctiva ENT: Moist mucous membranes, No rhinorrhea Neck: Supple, Nontender Cardiovascular: Regular rate, Regular rhythm, No murmurs Respiratory: No distress, CTA bilaterally, Chest nontender Abdomen: Soft, Nontender, Nondistended, Normal bowel sounds Rectal: - - No hemorrhoids, digital rectal examination no stool or blood on gross examination, Hemoccult sent and pending. Back: Nontender, Normal Inspection Extremities: Nontender, No edema Skin: Normal color, No rash. Negative for: Pallor Neurological: Alert, Oriented x3, Cranial nerves II-XII grossly intact, Normal Strength, Normal Sensation Psychological: Normal affect, Normal Mood Diagnostic/Tx/Re-eval Abnormal Lab Results 10/04/20 10/04/20 10/04/20 17:44 17:44 17:44 WBC 11.2 H RBC 4.59 L Hgb 14.3 Hct 42.5 MCV 92.6 MCH 31.2 MCHC 33.6 RDW Std Deviation 41.0 RDW Coeff of [place] 12.1 Plt Count 263 MPV 10.6 Immature Gran % (Auto) 0.400 Neut % (Auto) 60.8 Lymph % (Auto) 28.6 [place] % (Auto) 7.5 Eos % (Auto) 1.8 Baso % (Auto) 0.9 Absolute Neuts (auto) 6.8 Absolute Lymphs (auto) 3.20 Nucleated RBC % 0 PT 13.2 INR 1.1 APTT 31.8 Sodium 137 Potassium 3.6 Chloride 106 Carbon Dioxide 25.0 Anion Gap 6 BUN 13 Creatinine 0.86 Estim Creat Clear Calc 82.22 Est GFR (MDRD) Af Amer 118 Est GFR (MDRD) Non-Af 98 BUN/Creatinine Ratio 15.0 Glucose 68 L Calcium 8.9 Total Bilirubin 0.40 AST 21 ALT 36 Alkaline Phosphatase 95 Total Protein 7.7 Albumin 4.2 Globulin 3.5 Albumin/Globulin Ratio 1.2 Lipase 178 - Medical Decision Making Patient vital signs stable, clinically stable, clinically not anemic. Nonsurgical abdomen. Labs were obtained no hemoglobin 14.2 lipase liver enzymes normal. Rectal exam no gross stools or blood however Hemoccult was positive. With patient's history of NSAID use likely culprit. Discussed gastritis versus early ulcer with the patient. He was given Protonix IV. Prescription for omeprazole twice a day for the next month along with Carafate for 2 weeks. He states he had a colonoscopy through [facility] which he thinks was Dr. Coyne, no history of EGD. He is to follow-up with [facility] surgery for outpatient endoscopy as needed. Nursing triage noted he had 2 beers today however he denies this. He states he has 1 drink every so often however none today. Strict return precautions discussed. All questions were answered. ED Disposition - Plan for ED Patient: Disposition: Home or Assisted Living Diagnosis: Gastritis, GI bleed due to NSAIDs Instructions: ED PEPTIC ULCER vs GASTRITIS Prescriptions: Sucralfate [Carafate] 1 gm PO 4X/DAY #60 tablet Omeprazole 40 mg PO BID #60 capsule. Referrals: Lance Penn MD [STAFF PHYSICIAN] - 1-2 Weeks Additional Instructions: Stop your ibuprofen. You may use Tylenol as needed. Take medication as prescribed. Follow-up as an outpatient for further testing as needed. Return if any worsening symptoms.
[2020-10-04 18:07] LABS: Absolute Neutrophil Count 6.8 X10^3/uL (2.0-7.7); Basophil% 0.9 % (0-1); Eosinophils% 1.8 % (0-5); Hematocrit 42.5 % (40-54); Hemoglobin 14.3 g/dL (13.0-16.5); Lymphocyte % 28.6 % (19-41); Mean Corp Hgb Conc 33.6 g/dL (32-36); Mean Corpuscular Hgb 31.2 pg (27.0-32.0); Mean Corpuscular Volume 92.6 fL (80-94); Mean Platelet Vol. 10.6 fl (6.2-12.0); Monocyte# 0.84 X10^3/uL; Monocyte% 7.5 % (0-10); NRBC Flagged by Analyzer 0 % (0-5); Neutrophil # 6.78 X10^3/uL (2.7-7.7); Neutrophil % 60.8 % (47-70); Platelet Count 263 K/mm3 (150-450); RBC Distribution Width CV 12.1 % (11.6-14.6); Red Blood Count 4.59 M/mm3 (4.6-6.2); White Blood Count 11.2 K/mm3 (4.4-11.0)
[2020-10-04 18:12] LABS: International Normalized Ratio 1.1; Prothrombin Time (Protime)PT. 13.2 SECONDS (11.7-14.9)
[2020-10-04 18:13] LABS: Partial Thromboplast Time 31.8 Seconds (24.1-36.2)
[2020-10-04 18:17] LABS: ALB/GLOB Ratio 1.2 RATIO (0.9-2.4); AST(SGOT) 21 U/L (15-37); Alanine Aminotransfer ALT/SGPT 36 U/L (16-61); Albumin, Serum 4.2 g/dL (3.2-5.0); Alkaline Phosphatase 95 U/L (45-117); Anion Gap 6 (5-15); BUN 13 mg/dL (7-18); Calcium,Total 8.9 mg/dL (8.5-10.1); Chloride 106 mmol/L (98-107); Creatinine, Serum 0.86 mg/dL (0.70-1.30); EST Glomerular Filtration Rate 98 mL/min (>60); Est Glom Filt Rate - Afr Amer 118 mL/min (>60); Estimated Creatinine Clearance 82.22 ml/min; Globulin 3.5 g/dL (2.2-4.2); Glucose 68 mg/dL (74-106); Lipase 178 U/L (73-393); Potassium 3.6 mmol/L (3.5-5.1); Protein, Total 7.7 g/dL (6.4-8.2); Sodium Level 137 mmol/L (136-145)
== END 2020-10-04 19:24 | disposition home or self-care (01) ==
PROVIDERS: Emergency Provider Emergency Medicine; PCP Family Medicine
DX: K29.71 Gastritis, unspecified, with bleeding (principal); T39.315A Adverse effect of propionic acid derivatives, initial encounter; Y92.9 Unspecified place or not applicable; Z79.899 Other long term (current) drug therapy; Z87.891 Personal history of nicotine dependence
CPT/HCPCS: 80053; 82274; 83690; 85025; 85610; 85730; 96365; 99282

== ENCOUNTER 2024-01-16 17:52 | Emergency (ER) | payer OTHER, SELFPAY ==
[2024-01-16 17:52] VITALS: BP 159/81; PULSE 54; RESP 18; TEMP 36.4; O2SAT 95; BMI 35.4
--- NOTE | 2024-01-16 18:06 | EDS_ITS ---
HPI <ANDERSON Turpin - Last Filed: 01/16/24 18:29> History of Present Illness Chief Complaint: Cellulitis Narrative Narrative: Patient is a 58-year-old male with no significant medical history presents to the emergency department with 6 to 7 days of redness to his right forearm. 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 He did draw a line around it with a pen, he notes that it stretch beyond this border and he is here for evaluation. He is not diabetic, denies any fever chills nausea or vomiting. PFSH <ANDERSON Turpin - Last Filed: 01/16/24 18:29> [facility] Medical History (Updated 01/16/24 @ 18:20 by ANDERSON Turpin) High triglycerides Home Medications ?Medication ?Instructions ?Recorded ?Last Taken ?Type albuterol sulfate 90 mcg/actuation 1 puff inhalation Q4H PRN PRIOR TO 02/29/20 Unknown History aerosol inhaler SURGERY citalopram 40 mg tablet 40 mg PO DAILY 02/29/20 Unknown History trazodone 50 mg tablet 50 mg PO QHS 02/29/20 Unknown History omeprazole 40 mg capsule,delayed 40 mg PO BID ##60 10/04/20 Unknown Rx release sucralfate 1 gram tablet 1 gm PO 4X/DAY #60 TABLETS 10/04/20 Unknown Rx cephalexin 500 mg capsule 500 mg PO Q6 #39 CAPSULES 01/16/24 Unknown Rx Allergy/AdvReac Type Severity Reaction Status Date / Time adhesive tape AdvReac Itching Verified 01/16/24 17:52 Family History no significant family his Social History Smoking Status: Former smoker ROS <ANDERSON Turpin - Last Filed: 01/16/24 18:29> ROS ED ROS Narrative Constitutional: Negative for fever, chills, weight loss, weakness Eyes: Negative for vision loss, vision change, double vision ENT: Negative for any sore throat, ear pain, congestion Cardiovascular: Negative for any chest pain, tightness, palpitations Respiratory: Negative for any cough, sputum production, hemoptysis, dyspnea, dyspnea on exertion, orthopnea Gastrointestinal: Negative for any abdominal pain, nausea, vomiting, diarrhea, constipation, blood in stool, blood in vomit : Negative for any urinary frequency, dysuria, retention, blood in urine Muscle skeletal: Negative for any neck pain, back pain Neurological: Negative for any headache, syncope, dizziness Skin: Negative for any rashes, itching, abrasions, lacerations. Positive for redness to the right forearm Psychiatric: Negative for any depression, anxiety, stress, suicidal ideation, homicidal ideation Hematologic: Negative for any excessive bruising, easy bleeding EXAM <ANDERSON Turpin - Last Filed: 01/16/24 18:29> Physical Exam Narrative Exam Narrative: Vital signs reviewed. Extremities: No peripheral edema, no signs of gross trauma or deformity. Active full range of motion of all extremities. Patient has some redness to the posterior forearm on the right. Patient able to flex and extend, patient is no pain to his elbow. The area is warm to the touch. Is consistent with ce llulitis. +2 radial pulse. There is significant swelling to the area compared to the left arm. No foreign body noted, no obvious drainable abscess noted. Neuro: Cranial nerves II through XII intact, no focal neurological deficits. Skin: Clean dry and intact with no rash, purpura, petechiae, vesicles or pustules. Backs/flank: No CVA tenderness, no midline spinal tenderness, no deformity. Psych: Normal mood and affect. No SI, HI or acute psychosis. Const Vital Signs: 01/16/24 17:52 Temperature 97.6 F L Temperature Source Temporal Pulse Rate 54 L Respiratory Rate 18 Blood Pressure 159/81 H Blood Pressure Mean 107 Pulse Ox 95 Oxygen Delivery Method Room Air <Dr. Lance Gao, DO - Last Filed: 01/16/24 18:35> Physical Exam Const Vital Signs: 01/16/24 17:52 Temperature 97.6 F L Temperature Source Temporal Pulse Rate 54 L Respiratory Rate 18 Blood Pressure 159/81 H Blood Pressure Mean 107 Pulse Ox 95 Oxygen Delivery Method Room Air [facility] <ANDERSON Turpin - Last Filed: 01/16/24 18:29> [facility] Treatment and Re-Evaluation :: Differential diagnosis includes however is not limited to: Cellulitis, hematoma, bursitis, septic joint Patient appears to be in no obvious distress vital signs are stable, presenting to the emergency department with complaints of redness, swelling to the right forearm. Physical findings are consistent with a cellulitis, there is no abscess drainable, there is no pain with flexion extension of the elbow joint. No wrist pain. No foreign body noted. Patient will be discharged home on Keflex, patient be diagnosed with cellulitis. Patient instructed to return for any worsening symptoms. Patient can ice elevate. Happy with the plan of care, stable for discharge. <Dr. Lance Gao, DO - Last Filed: 01/16/24 18:35> [facility] History & Record Review Discussion w/independent historian: Patient Treatment and Re-Evaluation :: Differential diagnosis includes however is not limited to: Cellulitis, hematoma, bursitis, septic joint Patient appears to be in no obvious distress vital signs are stable, presenting to the emergency department with complaints of redness, swelling to the right forearm. Physical findings are consistent with a cellulitis, there is no abscess drainable, there is no pain with flexion extension of the elbow joint. No wrist pain. No foreign body noted. Patient will be discharged home on Keflex, patient be diagnosed with cellulitis. Patient instructed to return for any worsening symptoms. Patient can ice elevate. Happy with the plan of care, stable for discharge. I have personally performed a face to face assessment of the patient and have reviewed the MARCI Note. I performed a substantive portion of the visit including all aspects of the following. My mg findings include: History is 58-year-old male presenting to the emergency department with erythema and increased warmth of the skin posterior aspect of the right forearm. Exam is: Afebrile. There are some mild swelling. No lymphangitic streaking. No fever. No joint swelling or bursal swelling. There is a healing burn damon of unknown duration with the area. No obvious palpable foreign bodies. Abscess noted. Medical Decison Making The patient was started on antibiotics. Would recommend returning if worsening or concerns. The area of erythema was outlined with a pen Discharge Plan Triage Chief Complaint: Cellulitis ED Midlevel Provider: Ethan Powell ED Provider: Lance Gao Dx/Rx/DC Orders Clinical Impression: Cellulitis Instructions: Cellulitis Dc Prescriptions: New cephalexin 500 mg capsule 500 mg PO Q6 Qty: 39 0RF No Action citalopram 40 MG tablet 40 mg PO DAILY trazodone 50 MG tablet 50 mg PO QHS albuterol sulfate 1 PUFF inhaler 1 puff inhalation Q4H PRN (Reason: PRIOR TO SURGERY) sucralfate 1 GM tablet 1 gm PO 4X/DAY Qty: 60 0RF omeprazole 40 MG capsule,delayed release(DR/EC) 40 mg PO BID Qty: 60 0RF Primary Care Provider: Anthony Franks Referrals: Anthony Franks MD [Primary Care Provider] - Activity Restrictions/Additional Instructions: Please take medications until empty. Throw the bottle away empty. Ice and elevate. Return for any worsening redness, fever chills nausea or vomiting. Print Language: Hungarian Disposition Disposition: Home, Self Care Discharge Date/Time: 01/16/24 18:28
[2024-01-16] MEDS: Cephalexin 250 MG Capsule 500 MG PO (18:22)
== END 2024-01-16 18:28 | disposition home or self-care (01) ==
LOC: ED 18:23
PROVIDERS: Emergency Provider Emergency Medicine; PCP Family Medicine; Visit Provider Emergency Medicine
DX: L03.90 Cellulitis, unspecified (principal); Z87.891 Personal history of nicotine dependence
CPT/HCPCS: 99283

== ENCOUNTER 2024-03-25 11:39 | Emergency (ER) | payer OTHER, SELFPAY ==
[2024-03-25 11:39] VITALS: BP 169/90; PULSE 63; RESP 16; TEMP 37.1; O2SAT 97; BMI 34.1
--- NOTE | 2024-03-25 13:19 | EX.ED.VIS.EY ---
HPI History of Present Illness Chief Complaint: Eye Problem Detail of Chief Complaint: Pain, redness and change in vision right eye Informant: patient Onset/Context/Timing Location: Right Eye Onset: Today Context: Sudden Onset Timing: Continuous Current Severity: Mild Maximum Severity: Mild Worsened by: Blurred vision right eye Relieved by: Nothing Associated Symptoms Associated Symptoms - Eyes: Photophobia and Redness; Negative for Burning, Crusting, Drainage, Eyelid swelling, Foreign body sensation, Itching, Matting or Pain Visual Changes: right: Blurred vision History of injury: Yes (Patient states there was foreign body right and left thigh that was removed by architectural design professor.) Visual correction: None Narrative Narrative: Patient is a 58-year-old male. He has history of GERD. He had bilateral foreign bodies noted right and left eye. This was removed with a brush on the right side and was flicked out on the left side per patient. The exam was . He presents with change in vision. He also reports redness to the right eye. He denies itching. He does have some slight clear drainage. There is no matting of the eyelashes. Patient has no history of glaucoma. He has no history of diabetes. There was no trauma since evaluation by architectural design professor on . Prior similar symptoms: No Recent Illness/Hospitalization: Yes [facility] Medical History High triglycerides Home Medications ?Medication ?Instructions ?Recorded ?Last Taken ?Type albuterol sulfate 90 mcg/actuation 1 puff inhalation Q4H PRN PRIOR TO 02/29/20 Unknown History aerosol inhaler SURGERY citalopram 40 mg tablet 40 mg PO DAILY 02/29/20 Unknown History trazodone 50 mg tablet 50 mg PO QHS 02/29/20 Unknown History omeprazole 40 mg capsule,delayed 40 mg PO BID ##60 10/04/20 Unknown Rx release sucralfate 1 gram tablet 1 gm PO 4X/DAY #60 TABLETS 10/04/20 Unknown Rx cephalexin 500 mg capsule 500 mg PO Q6 #39 CAPSULES 01/16/24 Unknown Rx moxifloxacin 0.5 % eye drops 1 drp EACH EYE Q4H 5 days #3 mL 03/25/24 Unknown Rx Allergy/AdvReac Type Severity Reaction Status Date / Time adhesive tape AdvReac Itching Verified 03/25/24 11:41 Social History Smoking Status: Former smoker ROS ROS ED Constitutional Constitutional ED: Denies chills, fever(s) or subjective Eyes Eyes: Reports blurry vision right; Denies diplopia ENT ENT ED: Denies rhinorrhea or sore throat Integumentary Denies rash Neurologic Neurologic: Denies headache(s) or paresthesias Psychiatric Psychiatric: Denies anxiety or depression EXAM Physical Exam Const Vital Signs: 03/25/24 11:39 Temperature 98.7 F Temperature Source Oral Pulse Rate 63 Respiratory Rate 16 Blood Pressure 169/90 H Blood Pressure Mean 116 Pulse Ox 97 Oxygen Delivery Method Room Air Positive well nourished and well developed Constitutional Narrative: Blood pressure is elevated. He has no history of hypertension. General Appearance ED: well developed and NAD HEENT HEENT Narrative: Head is atraumatic normocephalic. Ears normal. Nares patent. Mucosas moist. Eyes Eyes Narrative: Pupils equal round reactive. Extraocular muscle intact. The right and left sclera and conjunctive are injected. The right side is worse. There is no matting of the eyelashes. There is no swelling of the upper or lower eyelid. Patient reported slight photophobia to direct light on the right side only. Patient has myosis and limits funduscopic exam. Visual acuity is 27 right eye, 20/30 left eye and 20/30 both eyes Slit-lamp exam reveals a defect close to the central visual axis at 6:00. There is retained rust ring/metallic foreign body. This is noted on the right eye. The left eye is remarkable for corneal ulcer at 6:00 1 mm from the limbal border. There is no flare or cells noted either side. Neck no lymphadenopathy, supple and no JVD Resp normal respiratory effort Cardio regular rate and regular rhythm Neuro oriented x3 and CN's II-XII intact bilaterally Sensorium / Orientation: alert Psych Psych Narrative: Normal Skin no wounds Skin Narrative: There is no rash to suggest herpes varicella-zoster. MDM MDM MDM Narrative Medical decision making narrative: Differential diagnosis is conjunctivitis, retained foreign body, doubt iritis. Need to entertain possibility of corneal ulcer. Doubt glaucoma. Patient's eyes were anesthetized with tetracaine and stained with fluorescein. The metallic foreign body was removed with ophthalmic bur. This was noted on the right eye. Left eye with corneal ulcer. Spoke with ophthalmology on-call Dr. Eric Kauffman. He requested moxifloxacin and he will see patient on Wednesday. 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, Acute conjunctivitis, bilateral Instructions: ED Conjunctivitis, Nonspecific, ED Corneal Ulcer, ED Corneal Foreign Body, Removed Prescriptions: New moxifloxacin 0.5 % drops 1 drp EACH EYE Q4H 5 Days Qty: 3 0RF No Action citalopram 40 MG tablet 40 mg PO DAILY trazodone 50 MG tablet 50 mg PO QHS albuterol sulfate 1 PUFF inhaler 1 puff inhalation Q4H PRN (Reason: PRIOR TO SURGERY) sucralfate 1 GM tablet 1 gm PO 4X/DAY Qty: 60 0RF omeprazole 40 MG capsule,delayed release(DR/EC) 40 mg PO BID Qty: 60 0RF cephalexin 500 mg capsule 500 mg PO Q6 Qty: 39 0RF Primary Care Provider: Anthony Franks Referrals: Anthony Franks MD [Primary Care Provider] - Eric Kauffman MD [Med Staff - Active Staff] - 2 Days Activity Restrictions/Additional Instructions: Dr. Eric Morrow MD we will see you on Wednesday. Call office in the morning. Instill antibiotic drops every 4 hours both eyes. Discontinue the Neosporin ophthalmic drops that you were prescribed Print Language: Georgian Disposition Disposition: Home, Self Care
[2024-03-25 13:39] VITALS: BP 164/89; PULSE 80; RESP 16; O2SAT 99
[2024-03-25] MEDS: Fluorescein 1 MG STRIP 1 STRIP EACH EYE (14:10)
[2024-03-25] MEDS: Tetracaine 0.5% Ophthalmic Bottle 2 DRP EACH EYE (14:10)
== END 2024-03-25 14:48 | disposition home or self-care (01) ==
PROVIDERS: Emergency Provider Emergency Medicine; PCP Family Medicine; Visit Provider Emergency Medicine
DX: H16.002 Unspecified corneal ulcer, left eye (principal); H10.33 Unspecified acute conjunctivitis, bilateral; Z87.891 Personal history of nicotine dependence; T15.01XA Foreign body in cornea, right eye, initial encounter; W44.F9XA Other object of natural or organic material, entering into or through a natural orifice, initial encounter
CPT/HCPCS: 65220; 10120; 99283

== ENCOUNTER 2024-12-27 20:19 | Emergency (ER) | payer OTHER, SELFPAY ==
[2024-12-27 20:20] VITALS: BP 147/116; PULSE 66; RESP 16; TEMP 36.9; O2SAT 98; BMI 36.3
--- NOTE | 2024-12-27 20:51 | EX.ED.UPPERE ---
HPI History of Present Illness Chief Complaint: Laceration Informant: patient Narrative Narrative: Patient is a 59-year-old male, [id number] presenting with injury to his right index finger. Patient was using a slab grinder when he accidentally cut his right index finger on the dorsal aspect. States it was did not blood in the ground and irregular because he came in for further evaluation. Denies any associate numbness or tingling. Denies any blood thinners. No other complaints or concerns at this time. Tetanus Immunization: <5 years [facility] Medical History High triglycerides Home Medications ?Medication ?Instructions ?Recorded ?Last Taken ?Type albuterol sulfate 90 mcg/actuation 1 puff inhalation Q4H PRN PRIOR TO 02/29/20 Unknown History aerosol inhaler SURGERY citalopram 40 mg tablet 40 mg PO DAILY 02/29/20 Unknown History trazodone 50 mg tablet 50 mg PO QHS 02/29/20 Unknown History omeprazole 40 mg capsule,delayed 40 mg PO BID ##60 10/04/20 Unknown Rx release sucralfate 1 gram tablet 1 gm PO 4X/DAY #60 TABLETS 10/04/20 Unknown Rx cephalexin 500 mg capsule 500 mg PO Q6 #39 CAPSULES 01/16/24 Unknown Rx moxifloxacin 0.5 % eye drops 1 drp EACH EYE Q4H 5 days #3 mL 03/25/24 Unknown Rx Allergy/AdvReac Type Severity Reaction Status Date / Time adhesive tape AdvReac Itching Verified 12/27/24 20:22 Family History no significant family his Surgical History H/O right knee surgery Social History Smoking Status: Former smoker ROS ROS ED Constitutional Constitutional ED: Denies chills or fever(s) Musculoskeletal Musculoskeletal: Reports other Details: Right index finger pain Integumentary Reports other Details: Laceration to the right index finger Neurologic Neurologic: Denies paresthesias or weakness Hematologic/Lymphatic Hematologic/Lymphatic: Denies easy bleeding or easy bruising EXAM Physical Exam Const Vital Signs: 12/27/24 20:20 Temperature 98.4 F Temperature Source Oral Pulse Rate 66 Respiratory Rate 16 Blood Pressure 147/116 H Blood Pressure Mean 126 Pulse Ox 98 Oxygen Delivery Method Room Air Positive well nourished and well developed General Appearance ED: well developed and NAD HEENT normocephalic and atraumatic Resp normal respiratory effort Cardio regular rate and regular rhythm Cardio Narrative: 2+ radial pulses Extremity Extremity Narrative: No obvious deformity of the fingers. Normal flexion extension mechanisms. Psych mental status grossly normal Skin Skin Narrative: Approximately 5 cm laceration with proximal half that is partial-thickness and the distal half is full-thickness along the dorsal aspect of the right index finger spanning the PIP down to the MCP. No active bleeding at this time. Slightly gaping at the distal aspect. No obvious exposed tendon. MDM MDM MDM Narrative Medical decision making narrative: Patient evaluated for laceration from a slab grinder to his right index finger. His tetanus is up-to-date per the patient. No obvious flexor or extensor tendon injury. I do not suspect any associated fracture but given that it was a slab grinder injury will obtain x-ray to look for underlying fracture versus foreign body. X-ray reviewed by myself as well as radiology does not show any acute process. Laceration repair performed. See procedure note. Patient given wound care instructions. Counseled sutures need to come out in 10 to 14 days. Counseled on signs and symptoms of infection. Patient able to irrigate his hand after digital nerve block and running sink water for a good 5 minutes. Procedures Lacerations finger: Length: 1.57 in Depth: Skin Shape: Linear Prep: Chlorhexadine Laceration repair: Digital block and Irrigated Number of Sutures/Grover: 4 Suture Information: Ethilon (4-0), Simple (3) and Horizontal (1) Discharge Plan Triage Chief Complaint: Laceration ED Provider: Lorena Monzon Dx/Rx/DC Orders Clinical Impression: Finger laceration Instructions: ED Laceration, Hand: All Closures Prescriptions: No Action citalopram 40 MG tablet 40 mg PO DAILY trazodone 50 MG tablet 50 mg PO QHS albuterol sulfate 1 PUFF inhaler 1 puff inhalation Q4H PRN (Reason: PRIOR TO SURGERY) sucralfate 1 GM tablet 1 gm PO 4X/DAY Qty: 60 0RF omeprazole 40 MG capsule,delayed release(DR/EC) 40 mg PO BID Qty: 60 0RF cephalexin 500 mg capsule 500 mg PO Q6 Qty: 39 0RF moxifloxacin 0.5 % drops 1 drp EACH EYE Q4H 5 Days Qty: 3 0RF Stand Alone Forms: ED Work / School Excuse Primary Care Provider: Anthony Franks Referrals: Anthony Franks MD [Primary Care Provider] - Activity Restrictions/Additional Instructions: Sutures should be removed in 10 to 14 days. Print Language: Gibraltarian Disposition Disposition: Home, Self Care Discharge Date/Time: 12/27/24 22:06
--- NOTE | 2024-12-27 21:00 | RAD_ITS ---
PROCEDURE: FINGER(S) MIN 2 VIEWS 12/27/2024 REASON FOR EXAM: LACERATION TECHNIQUE: FINGER(S) MIN 2 VIEWS COMPARISON: None. FINDINGS: No evidence acute fracture or dislocation. Soft tissue irregularity which may represent a laceration. RAD/Finger(s) Min 2 Views IMPRESSION: Laceration. Reading Location: [place] [id number]
[2024-12-27] MEDS: Lidocaine 1% (20 ml mdv) 20 ML Vial INFILT (21:15)
[2024-12-27 22:03] VITALS: BP 167/99; PULSE 61; RESP 18; TEMP 36.9; O2SAT 98
== END 2024-12-27 22:06 | disposition home or self-care (01) ==
PROVIDERS: Emergency Provider Emergency Medicine; PCP Family Medicine; Referring Provider Emergency Medicine; Visit Provider Emergency Medicine
DX: S61.210A Laceration without foreign body of right index finger without damage to nail, initial encounter (principal); Z87.891 Personal history of nicotine dependence; W29.8XXA Contact with other powered hand tools and household machinery, initial encounter
CPT/HCPCS: 12002; 73140; 99283